=== PATIENT | female | born 1980 | race Caucasian/White ===

== ENCOUNTER 2020-05-16 10:25 | Outpatient (CLI) | payer OTHER, SELFPAY ==
--- NOTE | 2020-05-16 10:30 | ECG_ITS ---
Measurements Intervals [place] Rate: 106 P: 61 [place]: 151 QRS: 21 QRSD: 86 T: 1 QT: 316 QTc: 420 Interpretive Statements SINUS TACHYCARDIA POSSIBLE LEFT ATRIAL ENLARGEMENT RSR' IN V1 OR V2, CONSIDER RIGHT VENTRICULAR HYPERTROPHY OR RIGHT VCD CONSIDER ANTERIOR INFARCT, AGE INDETERMINATE BORDERLINE T WAVE ABNORMALITY- ANT/INF LEADS BASELINE ARTIFACT- I, II, III, AVR, AVL, AVF ABNORMAL ECG Electronically Signed On 05-16-2020 10:51:54 CDT by Julius Jack D.O.
[2020-05-16 11:21] LABS: Alanine Aminotransferase 44 U/L (4-35); Albumin Level 4.2 g/dL (3.5-5.1); Alkaline Phosphatase 98 U/L (38-126); Anion Gap 7 mmol/L (8-16); Aspartate Amino Transferase 32 U/L (14-36); Bilirubin,Total 0.6 mg/dL (0.2-1.3); Blood Urea Nitrogen 10 mg/dL (7-17); Calcium 8.9 mg/dL (8.4-10.2); Carbon Dioxide 27 mmol/L (22-30); Chloride 103 mmol/L (98-107); Estimated Glomerular Filt Rate > 60; Glucose 117 mg/dL (65-105); Potassium 3.4 mmol/L (3.4-5.0); Sodium 137 mmol/L (137-145)
== END 2020-05-16 10:26 | disposition home or self-care (01) ==
LOC: ANHSURGERY 10:30
PROVIDERS: PCP Family Medicine; Visit Provider Obstetrics & Gynecology
DX: N93.9 Abnormal uterine and vaginal bleeding, unspecified (principal); I10 Essential (primary) hypertension
CPT/HCPCS: 36415; 80053; 86850; 86900; 86901; 93005

== ENCOUNTER 2020-05-19 00:42 | Outpatient (CLI) | payer OTHER, SELFPAY ==
[2020-05-19 16:39] LABS: SARS-CoV-2 RNA PCR Negative
== END 2020-05-19 00:43 | disposition home or self-care (01) ==
LOC: ANHCOVIDDT 00:43
PROVIDERS: Visit Provider Obstetrics & Gynecology
DX: Z01.812 Encounter for preprocedural laboratory examination (principal); Z20.828 Contact with and (suspected) exposure to other viral communicable diseases
CPT/HCPCS: 87635; C9803; U0003

== ENCOUNTER 2020-05-21 03:09 | Day surgery (SDC) | payer OTHER, SELFPAY ==
[2020-05-15 09:13] VITALS: BMI 39.0
--- NOTE | 2020-05-20 17:52 | WPDANESEPP ---
Anes - Eval Pre Procedure Procedure: Operation Date: 05/21/20 07:30 Proposed Procedures p Total Laparoscopic Assisted Hysterectomy - Kasia Haney MD Date/Time: 05/20/20 17:52 Pre Op Diagnosis: abnormal uterine and vaginal bleeding Patient Data Age: 39 Gender: F Height: 5 ft Weight: 90.72 kg Allergies Allergy/AdvReac Type Severity Reaction Status Date / Time Sulfa (Sulfonamide Allergy RASH, Verified 05/15/20 09:14 Antibiotics) CHEST TIGHTNESS Home Medications Medication Instructions Recorded Confirmed Type hydrochlorothiazide 25 mg PO DAILY 05/15/20 05/15/20 History losartan 100 mg PO DAILY 05/15/20 05/15/20 History venlafaxine 150 mg PO QPM 05/15/20 05/15/20 History Patient hx anesthesia problems: none Family hx anesthesia problems: none PMFSH Past Medical History Medical History (Updated 05/20/20 @ 17:55 by Eric Rodriguez CRNA) Anxiety and depression delivery delivered Hypertension Missed abortions Surgical History Surgical History S/P appy Social History Social History Smoking status: Never smoker Spiritual care concerns: No Comments VR 106 SINUS TACHYCARDIA POSSIBLE LEFT ATRIAL ENLARGEMENT RSR' IN V1 OR V2, CONSIDER RIGHT VENTRICULAR HYPERTROPHY OR RIGHT VCD CONSIDER ANTERIOR INFARCT, AGE INDETERMINATE BORDERLINE T WAVE ABNORMALITY- ANT/INF LEADS BASELINE ARTIFACT- I, II, III, AVR, AVL, AVF ABNORMAL ECG Exam Day of Procedure 05/20/20 17:52
[2020-05-21] VITALS (15 sets, daily range): BP systolic 102–144; BP diastolic 51–95; PULSE 88–110; RESP 14–18; TEMP 36.4–37.2; O2SAT 94–100
[2020-05-21] MEDS: ACETAMINOPHEN 500 MG TABLET 1000 MG PO (06:39)
[2020-05-21] MEDS: LACTATED RINGERS 1,000 ML 30 ML IV CONT ×2 (06:54→10:11)
[2020-05-21] MEDS: KETOROLAC 15 MG/ML VIAL (*BKC) IV PUSH (06:55)
--- NOTE | 2020-05-21 06:59 | P.PNAN_ITS ---
Anes - Initial Pre Proc Eval Procedure: Operation Date: 05/21/20 07:30 Proposed Procedures p Total Laparoscopic Assisted Hysterectomy - Kasia Haney MD Date/Time: 05/21/20 06:59 Surgeon: Kasia Haney MD Pre Op Diagnosis: abnormal uterine and vaginal bleeding Patient Data Age: 39 Gender: F Height: 5 ft Weight: 92.8 kg Last Vital Signs Temp 97.6 F 05/21/20 06:22 Pulse 106 H 05/21/20 06:22 Resp 14 05/21/20 06:22 BP 136/95 H 05/21/20 06:22 Pulse Ox 97 05/21/20 06:22 Allergies Allergy/AdvReac Type Severity Reaction Status Date / Time Sulfa (Sulfonamide Allergy Severe Anaphylaxis Verified 05/21/20 06:44 Antibiotics) Home Medications Medication Instructions Recorded Confirmed Type hydrochlorothiazide 25 mg PO DAILY 05/15/20 05/21/20 History losartan 100 mg PO DAILY 05/15/20 05/21/20 History venlafaxine 150 mg PO QPM 05/15/20 05/21/20 History Patient hx anesthesia problems: none Family hx anesthesia problems: none [facility] Past Medical History Medical History (Updated 05/20/20 @ 17:55 by Eric Rodriguez CRNA) Anxiety and depression delivery delivered Hypertension Missed abortions Surgical History Surgical History S/P appy Social History Social History Smoking status: Never smoker Spiritual care concerns: No Anes - Eval Final PreProcedure Day of Procedure 05/21/20 06:59 Patient weight: morbidly obese Heart: regular rate and rhythm Lungs: clear to auscultation Airway: Mallampati scale class II Neurological: alert and oriented Last oral intake: >/= 8 hours ASA classification: III Emergent: no Anesthetic plan: proceed Anesthesia type and monitoring: general ETT and standard monitoring Informed Consent: The patient's anesthetic plan and its attendant risks and benefits were discussed with the patient/family/POA. Questions were solicited and answers provided to the satisfaction of the patient/family/POA.
--- NOTE | 2020-05-21 07:13 | WPDHPUPDATE1 ---
History and Physical Update Update Date/Time: 05/21/20 07:13 History and Physical has been reviewed, including an updated exam of the patient. There are NO changes in the patient's condition. Risks, benefits, and alternatives have been discussed and questions answered. Patient agrees to proceed with procedure.
[2020-05-21] MEDS: ceFAZolin 2 GM/D5W 50 ML 2 GM/50 ML BAG IVPB (07:26)
--- NOTE | 2020-05-21 10:01 | PM.PROC ---
Procedure Note - Detailed Date of procedure: 05/21/20 Pre-op diagnosis: abnormal uterine and vaginal bleeding Post-op diagnosis: same Procedure performed: Total laparoscopic hysterectomy. Description of procedure: The patient was taken to the operating room. She was prepped and draped in the dorsal lithotomy position. A speculum was placed in the vagina. The cervix was grasped with a tenaculum. Stay sutures were placed at 3 and 9:00 a.m. of 0 Vicryl. The stay sutures were brought through the Troy up. The CHELSI manipulator was placed in the vagina with a fixed Troy cup. The cup was then pushed up around the cervix. The sutures were tied to the handle of the CHELSI manipulator. A 5 mm incision was made on the abdominal skin of the left upper quadrant using a scalpel. A 5 mm trocar was inserted into the intra-abdominal cavity under direct visualization the scope. Pneumoperitoneum was achieved. An 11 mm incision was made in the left lower quadrant of the abdomen with a scalpel. A 11 mm trocar was inserted into the intra-abdominal cavity under direct visualization the scope. A 5 mm periumbilical incision was made. A 5 mm scope was placed into the intra-abdominal cavity under direct visualization of the scope. The suspensory ligament of the ovary was cauterized and transected with ligature cautery in a bilateral fashion. The fallopian tubes were cauterized and transected in a bilateral fashion with LigaSure cautery. The round ligaments were cauterized and transected in bilateral fashion with LigaSure cautery. The round ligaments were cauterized and transected bilaterally with LigaSure cautery. The broad ligaments were cauterized and transected along the lateral aspects of the uterus down the level of the uterine arteries. A bladder flap was created using sharp and blunt dissection. The ureters were dissected out bilaterally down to the level of the uterine arteries. They could be visualized from the pelvic brim down the uterine arteries. Staying very close to the cervix the parametrium was cauterized transected in a stepwise fashion down to the level of the Troy cup. The Bladder flap was moved distally over the Troy cup using sharp and blunt dissection. The impression of the entire cup was visualized around the cervix. An incision was made with unipolar cautery down under the Troy cup creating a colpotomy incision all the way around the cervix. The uterus tubes and ovaries were taken out through the vagina. A pneumo occluder was placed in the vagina. The vagina was closed with 0 V lock suture in a running fashion. The ureters were identified again and found to be intact to the level of the uterine arteries. The pelvis was irrigated with a copious amount of antibiotic irrigation. The pneumoperitoneum was reduced. The trocars were removed. The skin was closed subcuticular 4 Monocryl covered with Dermabond. The pneumo occluder was removed from the vagina. The vagina was irrigated with Betadine. The patient tolerated the procedure well. She was taken to the recovery room in stable condition. Sponge lap and needle counts were correct x2. Anesthesia: GETA Surgeon: Kasia Haney MD Estimated blood loss (mL): 200 Drains: No Packing: No Pathology: yes Complications: No immediate complications Condition: stable Disposition: PACU Findings: Grossly normal appearing tubes and ovaries. Uterus - enlarged
--- NOTE | 2020-05-21 11:16 | SUR.PHASEI ---
1110; PT SLEEPING. RESP EVEN UNLABORED. P,W,D. REPORT FAXED TO FLOOR.
[2020-05-21] MEDS: LACTATED RINGERS 1,000 ML 125 ML IV CONT ×2 (11:54→20:11)
[2020-05-21] MEDS: KETOROLAC 30 MG/ML VIAL (*BKC) IV PUSH ×2 (11:55→20:23)
[2020-05-21] MEDS: HYDROcodone/acetaminophen (*CRX) 10-325 MG TABLET 1 TAB PO ×2 (12:53→18:03)
--- NOTE | 2020-05-21 12:53 | OBPPTRN ---
Patient transferred to post room # 284 via bed. Oriented to unit and. Patient verbalizes understanding.
[2020-05-21] MEDS: IBUPROFEN 600 MG TABLET PO (18:02)
[2020-05-21] MEDS: VENLAFAXINE HCL XR 75 MG CAP.ER.24H 150 MG PO (20:22)
[2020-05-21] MEDS: LOSARTAN POTASSIUM 100 MG TABLET PO (20:22)
[2020-05-21] MEDS: HYDROcodone/acetaminophen (*CRX) 5-325 MG TABLET 1 TAB PO (20:23)
[2020-05-21] MEDS: SIMETHICONE 80 MG TAB.CHEW PO (20:24)
[2020-05-22 00:43] VITALS: BP 116/63; PULSE 107; RESP 18; TEMP 36.4; O2SAT 96
[2020-05-22 04:00] VITALS: BP 125/73; PULSE 107; RESP 18; TEMP 36.4; O2SAT 97
[2020-05-22] MEDS: HYDROcodone/acetaminophen (*CRX) 5-325 MG TABLET 1 TAB PO (04:26)
[2020-05-22] MEDS: IBUPROFEN 600 MG TABLET PO (04:26)
[2020-05-22 07:55] VITALS: BP 130/84; PULSE 105; RESP 16; TEMP 36.9; O2SAT 95
--- NOTE | 2020-05-22 08:12 | PM.GYNPNOP ---
BULB PACKER - A/P Postoperative Procedures: Procedures Operation Date: 05/21/20 07:30 Actual Procedures Side Surgeon p Total Laparoscopic Assisted Hysterectomy Not Applicable Kasia Haney MD Postoperative day: 1 Postoperative status: doing well and other (Tollerating Regular Diet) Postoperative plan: routine post-op care and discharge Time Spent With Patient Time: Total time spent is greater than 50% in coordination of care (as documented) at patient's floor/unit and/or counseling patient: Time with patient: 15 - 25 minutes BULB PACKER- PN:Subj Post-Op Subjective Date/time seen: 05/22/20 08:12 Subjective: patient reports feeling better, pain is well controlled and patient is tolerating oral intake Exam Const: General: cooperative, healthy appearing, comfortable and no acute distress Resp: Auscultation: no crackles, no rales, no rhonchi and no wheezes Cardio: Rhythm: regular rhythm Heart sounds: no click and no murmurs GI: Inspection: non-distended Auscultation: normal bowel sounds Other: Incisions - CDI Extrem: General: normal to inspection, no pedal edema and no calf tenderness BULB PACKER - PN: Obj Data Vital Signs Vital Signs: Vital Signs - 24 hr 05/21/20 10:11 05/21/20 10:25 05/21/20 10:40 Temperature 97.8 F Pulse Rate 88 90 110 H Respiratory Rate 16 15 18 Blood Pressure 102/51 L 109/65 125/77 Pulse Oximetry 99 100 100 05/21/20 10:55 05/21/20 11:10 05/21/20 11:25 Temperature Pulse Rate 103 H 106 H 96 Respiratory Rate 14 17 16 Blood Pressure 125/66 129/82 127/84 Pulse Oximetry 100 95 96 05/21/20 11:36 05/21/20 11:45 05/21/20 12:00 Temperature 98.8 F 98.9 F Pulse Rate 107 H 100 99 Respiratory Rate 18 18 18 Blood Pressure 135/85 144/91 H 135/83 Pulse Oximetry 97 94 94 05/21/20 12:30 05/21/20 13:00 05/21/20 14:00 Temperature Pulse Rate 101 H 103 H 109 H Respiratory Rate 18 18 18 Blood Pressure 135/86 133/89 128/86 Pulse Oximetry 99 100 100 05/21/20 15:00 05/21/20 20:15 05/22/20 00:43 Temperature 99 F 98.3 F 97.6 F Pulse Rate 107 H 110 H 107 H Respiratory Rate 18 18 18 Blood Pressure 134/83 127/71 116/63 Pulse Oximetry 95 96 96 05/22/20 04:00 Temperature 97.6 F Pulse Rate 107 H Respiratory Rate 18 Blood Pressure 125/73 Pulse Oximetry 97 Intake/Output Intake/Output: Intake & Output 05/19/20 05/20/20 05/21/20 05/22/20 23:59 23:59 23:59 23:59 Intake Total 1250 800 Output Total 400 1200 Balance 850 -400 Meds/Results Medications: Active Medications Generic Name Dose Route Start Last Admin Trade Name Freq PRN Reason Stop Dose Admin Hydrocodone Bitart/Acetaminophen 1 tab 05/21/20 10:05 05/22/20 04:26 [place] 5-325 Mg PO 1 tab Q3H PRN Administration Pain Rated 5 or Less Hydrocodone Bitart/Acetaminophen 1 tab 05/21/20 10:05 05/21/20 18:03 [place] 10-325 Mg PO 1 tab Q3H PRN Administration Pain Rated 6 or Greater Fentanyl Citrate 25 mcg 05/21/20 07:07 05/21/20 11:05 Sublimaze IV PUSH 25 mcg Q2M PRN Administration Pain Hydrochlorothiazide 25 mg 05/22/20 09:00 Hydrochlorothiazide PO DAILY [facility] Hydromorphone HCl 0.5 mg 05/21/20 07:07 Dilaudid Inj IV PUSH Q5M PRN Pain Ibuprofen 600 mg 05/21/20 10:05 05/22/20 04:26 Motrin PO 600 mg Q6H PRN Administration Cramping Losartan Potassium 100 mg 05/22/20 20:00 Cozaar PO DAILY@1999 [facility] Naloxone HCl 0.1 mg 05/21/20 10:05 Narcan IV PUSH Q2M PRN Respiratory rate less than 10 Simethicone 80 mg 05/21/20 20:18 05/21/20 20:24 Mylicon PO 80 mg Q2HR PRN Administration gas Venlafaxine HCl 150 mg 05/22/20 20:00 Effexor Xr PO DAILY@1999 [facility]
[2020-05-22] MEDS: hydroCHLOROthiazide 25 MG TABLET PO (09:37)
== END 2020-05-22 10:02 | disposition home or self-care (01) ==
LOC: ANHSURGERY 06:11 → ANHOB2 11:36
PROVIDERS: PCP Family Medicine; Visit Provider Obstetrics & Gynecology
PROC: 0UT9FZZ Resection of Uterus, Via Natural or Artificial Opening With Percutaneous Endoscopic Assistance (ICD-10-PCS; CPT 58570; principal; 2020-05-21 07:30)
DX: N92.0 Excessive and frequent menstruation with regular cycle (principal); N80.0 Endometriosis of uterus; N84.0 Polyp of corpus uteri; N88.8 Other specified noninflammatory disorders of cervix uteri; I10 Essential (primary) hypertension; F41.8 Other specified anxiety disorders; E66.01 Morbid (severe) obesity due to excess calories; Z68.41 Body mass index [BMI] 40.0-44.9, adult
CPT/HCPCS: 58570; 87635; 88307; 99199; A9270; C9803; J0330; J0690; J1100; J1885; J2250; J2370; J2405; J2704; J2710; J3010; J7030; J7120; U0003